=== PATIENT | female | born 1985 | race Caucasian/White ===

== ENCOUNTER 2024-05-31 10:34 | Emergency (ER) | payer SELFPAY ==
[2024-05-31 10:50] VITALS: BP 147/92
--- NOTE | 2024-05-31 11:18 | ED.GENMED ---
History of Present Illness
General
Chief Complaint: Musculo-Skeletal Complaint
Source: patient
Time Seen by Provider: 05/31/24 11:08
History of Present Illness
History of Present Illness:
38yoF with no significant past medical history presenting for evaluation of right leg pain x 2 days. Patient reports pain throughout her entire right leg that feels like a charley horse. She is also having intermittent stabbing pain in the popliteal
fossa. She denies any injuries. She noticed that a vein in her right calf appeared to be bulging for a few minutes the day before her symptoms started. She researched her symptoms on [employer] and is worried that she may have a blood clot. She has not
been taking anything OTC for her symptoms. She denies any fevers, incontinence, back pain, paresthesias.
Past History
Past History
ED Past Medical History: None
ED Past Surgical History: None
Social History
Tobacco: Non-smoker
Alcohol: None
Drug: None
Personal: Single
Phy Exam
General Physical Exam
General Presentation: well appearing and no apparent distress
General age: appears stated age
General Skin: warm and dry
General Habitus: normal
General Mental: alert
Musculoskeletal Exam
Musculoskeletal Exam: other (R leg is normal to inspection. No skin changes or pitting edema. ROM of knee mildly decreased. No knee effusion or tenderness. +Mild tenderness in posterior upper calf. 2+ DP pulse and sensation intact. )
Course
Orders/Labs/Results
Orders:
Orders
05/31/24 11:20
Test Result ONCE
Venous Doppler Lwr Ext Rt [US Periph Venous LOWER Ext RT] Urgent
Comment:
Reason For Exam: R leg/calf pain
05/31/24 11:36
, Urine Qualitative Screen [HCG, Urine Qualitative Screen] Urgent
Date Specimen was Collected: 05/31/24
Time Specimen was Collected: 11:31
Urinalysis Reflex To Culture Urgent
Date Specimen was Collected: 05/31/24
Time Specimen was Collected: 11:31
Urine Microscopic Reflex Cult Urgent
Abnormal Lab Results
05/31/24
11:36
Leukocyte Esterase Rfl Trace A
(Negative)
Vital Signs
Initial and Last Documented VS:
Initial Vital Signs
Temp Pulse Resp BP Pulse Ox
97.4 F 92 18 147/92 100
05/31/24 10:50 05/31/24 10:50 05/31/24 10:50 05/31/24 10:50 05/31/24 10:50
Last Documented Vital Signs
Temp Pulse Resp BP Pulse Ox
97.8 F 85 20 116/80 100
05/31/24 13:40 05/31/24 13:40 05/31/24 13:40 05/31/24 13:40 05/31/24 13:40
MDM/Problems Addressed
Differential Diagnosis Includes:
38yoF here with atraumatic R leg pain x 3 days. Patient concerned for a DVT. No CP/SOB. She is afebrile and hemodynamically stable. Right leg is normal to inspection and is neurovascularly intact. Differential diagnosis includes but is not limited
to: musculoskeletal, sciatica, DVT
Initial ED plan: Check venous duplex. Patient reports urinary urgency without incontinence. Will check UA. She declines anaglesics.
*Critical Care Note
Total Time (30-74mins, 75-104mins- exclusive of procedures): Not Applicable
Update Note
Update Note:
Venous duplex is negative for DVT. She is stable for discharge. Suspect musculoskeletal pain. Supportive care discussed including rest, heat, NSAIDs. Advised f/u with PCP and ED return precautions discussed. She was discharged in stable condition.
ED Attending Note
-
Portions of this chart may have been created with voice recognition software.� Occasional wrong word or��sound alike� substitutions may have occurred due to the inherent limitations of voice recognition software.
Discharge Plan
Departure
Patient Disposition: Home (Routine Discharge)
Date of Disposition: 05/31/24
Time of Disposition: 13:26
Patient with high blood pressure during this ER visit?: Yes
Discharge Problem:
Pain in right leg
Instructions: Muscle and bone pain - Discharge instructions
Prescriptions:
No Action
amoxicillin 875 mg tablet
875 mg PO BID Qty: 20 0RF
Referrals:
[facility] [Provider Group]
NONE,* [Family Provider] -
Activity Restrictions/Additional Instructions:
Take Tylenol and ibuprofen as needed for pain. Apply heat to affected area.
Please follow-up with primary care if your symptoms persist. Return to the ER with any worsening symptoms.
Interventions
Interventions:
*Risk Screen - Suicide Last Done: 05/31/24 10:50
*General Assessment Last Done: 05/31/24 10:50
*Neglect/Abuse Screening Last Done: 05/31/24 10:50
ED- Fall Risk Assessment Last Done: 05/31/24 11:52
*ED COVID-19 Vaccine History Last Done: 05/31/24 11:52
*Nursing Disposition Last Done: 05/31/24 13:42
ED-Musculoskeletal Assessment Last Done: 05/31/24 11:52
Discharge Date and Time
Discharge Date/Time: 05/31/24 13:43
Print Language: NIGERIEN
[2024-05-31 12:15] LABS: Urine Albumin Negative (Neg - Trace); Urine Bilirubin Negative (Negative); Urine Character Clear (Clear); Urine Color Yellow; Urine Glucose Negative (Negative); Urine Ketone Negative (Negative); Urine Leukocyte Trace (Negative); Urine Nitrite Negative (Negative); Urine Occult Blood Negative (Negative); Urine Specific Gravity 1.015 (<1.030); Urine Urobilinogen Negative (Neg - 1+)
[2024-05-31 12:26] LABS: HCG, Urine Qualitative Screen Negative
[2024-05-31 13:40] VITALS: BP 116/80
[2024-05-31 14:43] LABS: Urine Squamous Cell >30 /LPF (Few)
[2024-05-31 14:44] LABS: Urine Amorphous Seen; Urine Red Blood Cell 0-2 /HPF (0-2)
== END 2024-05-31 13:43 | disposition home or self-care (01) ==
LOC: EMR 10:34
PROVIDERS: Physician Assistant; EMERGENCY PHYSICIAN Emergency Medicine
DX: M79.661 Pain in right lower leg (principal)
CPT/HCPCS: 99284; 81003; 81015; 81025; 93971

== ENCOUNTER 2025-01-06 16:05 | Emergency (ER) | payer OTHER, SELFPAY ==
[2025-01-06 16:09] VITALS: BP 130/86
[2025-01-06 17:02] VITALS: BMI 21.6
--- NOTE | 2025-01-06 17:48 | ED.GENMED ---
History of Present Illness
General
Chief Complaint: DVT/Possible Blood Clot
Time Seen by Provider: 01/06/25 17:09
History of Present Illness
History of Present Illness:
39-year-old female presents to the emergency department for evaluation of right upper extremity pain after receiving an IV iron infusion yesterday. She states the infusion was somewhat painful throughout but the pain worsened today. She has
difficulty moving the arm secondary to pain. No swelling or paresthesias
Past History
Past History
ED Past Medical History: None
ED Past Surgical History: None
Social History
Tobacco: Non-smoker
Alcohol: None
Drug: None
Personal: Single
Review of Systems
Review of Systems
Allergies reviewed?: Yes
All Other Systems: ROS reviewed and negative except as documented in HPI and ROS
Phy Exam
Physical Exam
Physical Exam:
GEN: Well appearing, NAD, WDWN
HEENT: Oral mucosa moist, no scleral icterus
Cardiac: Regular rate
Lung: No respiratory distress, no tachypnea
MSK: Palpable firm right antecubital vein with exquisite tenderness, no erythema or arm edema, strong radial pulse
Skin: Good color, no pallor or jaundice, no rashes
Neuro: AO x3, moves all extremities freely
Psych: Calm, cooperative
Course
Orders/Labs/Results
Orders:
Orders
01/06/25 17:48
Aspirin 325 mg PO NOW STA
Vital Signs
Initial and Last Documented VS:
Initial Vital Signs
Temp Pulse Resp BP Pulse Ox
98.2 F 97 18 130/86 100
01/06/25 16:09 01/06/25 16:09 01/06/25 16:09 01/06/25 16:09 01/06/25 16:09
Last Documented Vital Signs
Temp Pulse Resp BP Pulse Ox
98.2 F 97 18 130/86 100
01/06/25 16:09 01/06/25 16:09 01/06/25 16:09 01/06/25 16:09 01/06/25 16:09
MDM/Problems Addressed
MDM/Problems Addressed:
This is a superficial thrombophlebitis due to an IV iron infusion. Discussed supportive care with aspirin and warm compresses. It sounds as though she has iron deficiency and no evidence of active intestinal bleed thus I feel it is reasonable to
trial aspirin
*Critical Care Note
Total Time (30-74mins, 75-104mins- exclusive of procedures): Not Applicable
ED Attending Note
-
Portions of this chart may have been created with voice recognition software.� Occasional wrong word or��sound alike� substitutions may have occurred due to the inherent limitations of voice recognition software.
Discharge Plan
Departure
Patient Disposition: Home (Routine Discharge)
Date of Disposition: 01/06/25
Time of Disposition: 17:48
Patient with high blood pressure during this ER visit?: No
Discharge Problem:
Superficial thrombophlebitis
Instructions: Superficial vein phlebitis and thrombosis
Prescriptions:
No Action
amoxicillin 875 mg tablet
875 mg PO BID Qty: 20 0RF
Referrals:
Jimbo Ramírez MD [Family Provider] -
Activity Restrictions/Additional Instructions:
325mg aspirin daily (alternatively you may take ibuprofen 600mg every 6-8 hours) for 10-14 days
Warm compresses 3-4 times per day
Elevate arm when possible
Interventions
Interventions:
*Risk Screen - Suicide Last Done: 01/06/25 16:09
*General Assessment Last Done: 01/06/25 17:03
*Neglect/Abuse Screening Last Done: 01/06/25 16:09
ED- Fall Risk Assessment Last Done: 01/06/25 17:03
*ED COVID-19 Vaccine History Last Done: 01/06/25 17:03
*Nursing Disposition Last Done: 01/06/25 17:53
ED- Cardiac Assessment Last Done: 01/06/25 17:04
ED- Pulmonary Assessment Last Done: 01/06/25 17:04
ED-Peripheral Vascular Assessment Last Done: 01/06/25 17:04
ED-Skin Assessment Last Done: 01/06/25 17:04
Discharge Date and Time
Discharge Date/Time: 01/06/25 17:56
Print Language: RWANDAN
[2025-01-06] MEDS: ASPIRIN 325 MG PO (17:51)
== END 2025-01-06 17:56 | disposition home or self-care (01) ==
LOC: EMR 16:05
PROVIDERS: EMERGENCY PHYSICIAN Emergency Medicine; FAMILY PHYSICIAN Family Medicine
DX: I80.9 Phlebitis and thrombophlebitis of unspecified site (principal); T80.1XXA Vascular complications following infusion, transfusion and therapeutic injection, initial encounter; Y92.9 Unspecified place or not applicable
CPT/HCPCS: 99282

== ENCOUNTER → 2025-01-17 12:28 | Outpatient (REF) | payer OTHER, SELFPAY | LOC: RAD 12:28 | PROVIDERS: ATTENDING PHYSICIAN Family Medicine | DX: M79.601 Pain in right arm (principal); M79.89 Other specified soft tissue disorders | CPT/HCPCS: 93971 ==

== ENCOUNTER → 2025-03-02 10:36 | Outpatient (REF) | payer OTHER, SELFPAY | LOC: EMG 10:36 | PROVIDERS: ATTENDING PHYSICIAN Family Medicine | DX: M54.2 Cervicalgia (principal); M79.601 Pain in right arm; R20.0 Anesthesia of skin | CPT/HCPCS: 95886; 95910 ==

== ENCOUNTER → 2025-03-12 09:56 | Outpatient (REF) | payer OTHER, SELFPAY | LOC: WDC 09:56 | PROVIDERS: ATTENDING PHYSICIAN Family Medicine | DX: N64.52 Nipple discharge (principal); N64.4 Mastodynia | CPT/HCPCS: 76642; 77062; 77066 ==